=== PATIENT | female | born 1950 | race Caucasian/White ===

== ENCOUNTER → 2017-04-05 | Outpatient (CLI) | payer MEDICARE, BC | END | disposition home or self-care (01) | LOC: LABPAT 12:27 | PROVIDERS: ATTEND Orthopaedic Surgery | DX: Z01.812 Encounter for preprocedural laboratory examination (principal) | CPT/HCPCS: 87070 ==

== ENCOUNTER 2017-05-01 07:30 | Inpatient (IN) | payer MEDICARE, BC ==
[2017-06-07 11:45] VITALS: BMI 25.4
--- NOTE | 2017-06-11 10:02 | HP ---
HISTORY AND PHYSICAL REASON FOR ADMISSION: Surgery is 06/12/2017 HISTORY OF PRESENT ILLNESS: Elisabeth Colon is a 66-year-old patient seen symptomatic right knee osteoarthritis. After we discussed treatment options, she elected to proceed with right total knee arthroplasty. Consent was obtained. Medical clearance provided by Dr. Daniella Simmons. PAST MEDICAL HISTORY: Of hypertension, hyperlipidemia, hypothyroidism, rnf-tgvwvvy-hrcbromuc diabetes. PAST SURGICAL HISTORY: Thyroidectomy. DAILY MEDICATIONS: Atenolol, atorvastatin, levothyroxine, metformin. ALLERGIES: PENICILLIN. SOCIAL HISTORY: Patient denies tobacco use. PHYSICAL EXAMINATION: Evaluation of the right knee range of motion 0-120 degrees. Tenderness medial joint line. Positive medial Nitin's. Crepitus medial patellofemoral compartments with range of motion. Pain with patellofemoral compression. Ligaments stable. Hip rotation without pain. Distal neurovascular exam intact. RADIOGRAPHS: Right knee radiographs reveal severe medial and moderate patellofemoral compartment osteoarthritis. IMPRESSION: Right knee osteoarthritis. PLAN: Right total knee arthroplasty. Surgery is 06/12/2017. MMODL / IJN: [id number] /
[2017-06-12] MEDS ORDERED: ceFAZolin IN SWFI 2 GM/20 ML SYRINGE IVP ONE (05:00)
[2017-06-12] MEDS ORDERED: MELOXICAM 7.5 MG TAB PO ONE (05:00)
[2017-06-12] MEDS ORDERED: TRANEXAMIC ACID 1,000 MG in SODIUM CHLORIDE 0.9% 100 ML IVPB ONE ×4 (05:00)
[2017-06-12] MEDS ORDERED: ACETAMINOPHEN TAB 500 MG TAB PO ONE (05:00)
[2017-06-12] MEDS ORDERED: MIDAZOLAM 2 MG/2 ML VIAL IV PRN (05:36)
[2017-06-12] MEDS ORDERED: ONDANSETRON 4 MG/2 ML VIAL IVP ONE (05:36)
[2017-06-12] MEDS ORDERED: HYDROmorphone 1 MG/ML 1 ML SYRINGE IVP PRN ×4 (05:36→15:39)
[2017-06-12] MEDS ORDERED: DEXAMETHASONE SOD PHOSPHATE 10 MG/ML 1 ML VIAL IV ONE (05:36)
[2017-06-12 11:30] LABS: Glucose,Whole Blood 108 mg/dL (75-99)
[2017-06-12] MEDS: LACTATED RINGERS 1,000 ML IV SCH ×4 (11:30→23:20)
[2017-06-12] MEDS ORDERED: LIDOCAINE 1% 20 ML VIAL (10MG/ML) FOR IV START INTRADERMA ONE (11:31)
[2017-06-12] MEDS ORDERED: ROPIVACAINE 1,100 MG, SODIUM CHLORIDE 0.9% 330 ML MISCELLANE PRN ×2 (11:57)
--- NOTE | 2017-06-12 11:59 | P.ONQ ---
Anesthesiology Proc Note - PNB - Peripheral Nerve Block Performed Right Adductor Canal Infusion Time Out Performed: Yes (1142) Procedure Start Time: 11:43 Procedure Stop Time: 11:55 Indication: Acute Post-Operative Pain, Requested by physician Specifically requested for management of pain by DrRenetta: Gurmeet Lopez Sedation Type: Sedate with meaningful contact maintained Preparation: Sterile Prep Position: Supine Catheter: Indwelling Needle Types: doxIQ Needle Size: 80mm (3") Needle Gauge: 20 Technique: Ultrasound Injectate: 0.5% Ropivacaine (see comment for volume) (20cc) Blood Aspirated: No Pain Paresthesia on Injection Noted: No Resistance on Injection: Normal Events: Uneventful and Well Tolerated
[2017-06-12] MEDS ORDERED: ROPIVACAINE 246.25 MG, EPINEPHrine 0.5 MG, KETOROLAC 30 MG, cloNIDine HCL/PF 80 MCG, WA... MISCELLANE ONE ×5 (12:58)
[2017-06-12] MEDS ORDERED: SUCCINYLCHOLINE CHLORIDE 100 MG/5 ML SYR IV ONE (13:31)
[2017-06-12] MEDS ORDERED: fentaNYL (PF) 50 MCG/ML 2 ML AMP ONE (13:31)
[2017-06-12] MEDS ORDERED: ePHEDrine SULFATE/0.9% NACL/PF 50 MG/5 ML SYRINGE IV ONE (13:31)
[2017-06-12] MEDS ORDERED: SODIUM CHLORIDE 0.9% 20 ML with ceFAZolin 2 GM IV ONE ×2 (13:31)
[2017-06-12] MEDS ORDERED: ETOMIDATE 2 MG/ML 10 ML VIAL ONE (13:31)
[2017-06-12] MEDS ORDERED: TRANEXAMIC ACID 1,000 MG/10 ML VIAL ONE (13:31)
[2017-06-12] MEDS ORDERED: SODIUM CHLORIDE 0.9% 100 ML BAG ONE (13:31)
[2017-06-12] MEDS ORDERED: CLINDAMYCIN 1,800 MG in SODIUM CHLORIDE 0.9% IRRIGATIO 3,000 ML IRRIGATION ONE (14:10)
[2017-06-12] MEDS ORDERED: LACTATED RINGERS 1,000 ML IV ONE (14:51)
[2017-06-12] MEDS ORDERED: ONDANSETRON 4 MG/2 ML VIAL IVP PRN (15:39)
[2017-06-12] MEDS ORDERED: hydrOXYzine PAMOATE 25 MG CAP PO PRN (15:39)
[2017-06-12] MEDS ORDERED: HYDROcodone/APAP 7.5-325MG 1 EACH TAB PO PRN ×2 (15:39)
[2017-06-12] MEDS ORDERED: NALOXONE 0.4 MG/ML 1 ML VIAL IV PRN (15:39)
--- NOTE | 2017-06-12 15:39 | P.OP ---
Date of Procedure: 06/12/17 Preoperative Diagnosis: Right knee osteoarthritis Postoperative Diagnosis: Right knee osteoarthritis Procedure(s) Performed: Right total knee arthroplasty Implants: 1. Silver persona size 7 right narrow cruciate retaining cemented femur 2. Silver persona size D right cemented tibia 3. Silver persona 14 mm medial congruent polyethylene tibial insert 4. Silver persona 38 mm all polyethylene cemented patella Anesthesia: GETA, regional (Adductor canal catheter), local Surgeon: Gurmeet Lopez Mechanic Assistant #1: Ezra Quan Estimated Blood Loss (ml): 75 Pathology: other (Bone) Condition: stable Disposition: PACU Indications for Procedure: 66-year-old patient seen with symptomatic right knee osteoarthritis. After options regarding treatment were discussed, she elected to proceed with total knee arthroplasty. Operative Findings: see description of procedure Description of Procedure: Patient was taken to the operative suite after having an adductor canal catheter placed by the department of anesthesia. Patient underwent a general anesthetic by the department of anesthesia. Patient was given preoperative IV intake antibiotics and TXA. A well-padded tourniquet was placed about the [] lower extremity. The lower extremity was then prepped and draped in the normal sterile orthopedic fashion. The extremity was elevated, a tourniquet was insufflated to 350. A standard anterior incision was made sharply through skin. Dissection was taken down through the subcutaneous soft tissues down to the extensor mechanism. A medial arthrotomy was performed, patella was everted and knee was flexed. There was advanced osteoarthritis noted. A proximal tibial cutting guide was positioned. Proximal tibial cut was made. A distal intramedullary femoral cutting guide was positioned, distal femoral cut made. We placed the appropriate sizing guide and selected the appropriate size. A distal 4-in-1 femoral cutting block was positioned, distal femoral cuts were made. We now placed a trial femoral component into position, along with an appropriate size tibial tray and insert. We now took the knee through range of motion and had full extension good flexion and good overall soft tissue balance noted. The patella was everted and a flush cut made with patellar quad tendon. We templated the patella, appropriate drill holes were made. An appropriate trial patella was positioned, knee was taken through full range of motion with the patella tracking very nicely. The trial patella was removed. Drill holes were made through the femoral component. All trial components were removed after marking off the appropriate rotation of the tibia. Retractors were now positioned along the proximal tibia. An appropriate keel punch was made with the appropriate size tibial guide. At this point appropriate size implants were chosen and opened. The joint was irrigated copiously with pulse lavage mechanical irrigation. The deep soft tissues were infiltrated with local analgesic. We mixed antibiotic methylmethacrylate. Once the methyl methacrylate was ready, the tibial component was cemented into place removing any excess methylmethacrylate. The femoral component was cemented into place removing the removing any excess methylmethacrylate. We then inserted the appropriate size polyethylene tibial insert. We made sure that it was locked into position. We took the knee into full extension, and then back in a flexion making sure we had removed any excess methylmethacrylate. The patellar component was then cemented down and secured with clamp. Excess methylmethacrylate removed. We kept the knee in full extension, patellar clamp in position until methylmethacrylate had hardened. Once it had hardened the patellar clamp was removed. The knee was taken through full range of motion. The patella tracked nicely. There was good soft tissue balancing. The tourniquet was now released. Additional hemostasis was achieved via electrocautery. Second gram of TXA was given. The wound was irrigated with pulse lavage mechanical irrigation. The superficial soft tissues were infiltrated local analgesic. The extensor mechanism was repaired with Vicryl. We checked the repair with range of motion and it was stable. The subcutaneous soft tissues were repaired with Vicryl in layers. The skin was approximated with pernio/Dermabond. Sterile dressings were applied followed by loose web roll and Ethan bandage. The patient was transferred to a bed, and taken to recovery in stable and satisfactory condition. Jaya SANCHEZ assisted with the procedure.
--- NOTE | 2017-06-12 16:20 | XR ---
EXAMINATION TYPE: XR knee limited RT DATE OF EXAM: 06/12/2017 CLINICAL HISTORY: pain TECHNIQUE: Three views of the right knee are obtained. COMPARISON: None. FINDINGS: There is no acute fracture/dislocation. The tri-compartment joint spaces appear within no rmal limits. The overlying soft tissue appears unremarkable. IMPRESSION: There is no acute fracture or dislocation.ICD 10 NO FRACTURE, INITIAL EVALUATION
[2017-06-12] MEDS: traMADol 50 MG TAB PO SCH ×2 (18:20→23:19)
--- NOTE | 2017-06-12 18:27 | P.CONS ---
History of Present Illness - Reason for Consult Consult date: 06/12/17 medical management Requesting physician: Gurmeet Lopez - Chief Complaint knee replacement - History of Present Illness This is a 66-year-old female that was admitted post knee replacement. Patient says that today prior to surgery, she felt lightheaded and was told that her blood pressure was low. Denies any chest pain or palpitations shortness of breath no nausea no fever Review of Systems Constitutional: Denies chills, Denies fever Ears, nose, mouth and throat: Denies headache, Denies sore throat Cardiovascular: Reports lightheadedness, Denies chest pain, Denies shortness of breath Respiratory: Denies cough, Denies dyspnea Gastrointestinal: Denies abdominal pain, Denies diarrhea, Denies nausea, Denies vomiting Genitourinary: Denies dysuria, Denies hematuria Musculoskeletal: Denies myalgias Integumentary: Denies pruritus, Denies rash Neurological: Denies numbness, Denies weakness Psychiatric: Denies anxiety, Denies depression Endocrine: Denies fatigue, Denies weight change Hematologic/Lymphatic: Denies easy bleeding, Denies lymphadenopathy Past Medical History Past Medical History: Diabetes Mellitus, Hyperlipidemia, Hypertension, Osteoarthritis (OA), Thyroid Disorder Additional Past Medical History / Comment(s): HEART MURMUR, 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 History of Any Multi-Drug Resistant Organisms: None Reported Past Surgical History: Section, Orthopedic Surgery Additional Past Surgical History / Comment(s): Thyroidectomy 1996, STENT SMA Past Anesthesia/Blood Transfusion Reactions: No Reported Reaction, Motion Sickness Past Psychological History: No Psychological Hx Reported Additional Psychological History / Comment(s): STATES CURRENT ANXIETY Smoking Status: Former smoker Past Alcohol Use History: Daily Additional Past Alcohol Use History / Comment(s): 1 1/2 bottle of liquor daily OR a box of wine ., quit drinking APRIL 2017. QUIT SMOKING 7 YEARS AGO. SMOKED 2 PPD., SMOKED FOR 42 YEARS. Past Drug Use History: None Reported - Past Family History Father Family Medical History: Hypertension Mother Family Medical History: Diabetes Mellitus, Hypertension Sister(s) Family Medical History: Diabetes Mellitus, Hypertension Medications and Allergies Home Medications Medication Instructions Recorded Confirmed Type metFORMIN HCL ER [Glucophage Xr] 500 mg PO PC-SUPPER 05/24/17 11/08/17 History Aspirin 650 mg PO TID PRN 04/24/17 06/07/17 History Atenolol [Tenormin] 25 mg PO DAILY 04/24/17 06/07/17 History Levothyroxine Sodium [Levo-T] 112 mcg PO DAILY 04/24/17 06/07/17 History Valsartan/Hydrochlorothiazide 1 tab PO DAILY@1500 04/24/17 06/12/17 History [Valsartan-Hctz 320-25 mg Tab] amLODIPine [Norvasc] 5 mg PO DAILY@1500 04/24/17 06/07/17 History Acetaminophen Tab [Tylenol Tab] 1,000 mg PO TID PRN 06/07/17 06/12/17 History Allergies Allergy/AdvReac Type Severity Reaction Status Date / Time Penicillins Allergy Rash/Hives Verified 06/12/17 11:09 Physical Exam Vitals: Vital Signs Temp Pulse Pulse Resp BP BP Pulse Ox 06/12/17 16:30 94 18 90/58 93 L 06/12/17 16:15 93 18 101/54 100 06/12/17 16:01 96 18 106/57 96 06/12/17 15:51 98.5 F 93 16 108/55 98 06/12/17 13:00 72 16 84/56 06/12/17 12:00 60 16 76/51 06/12/17 11:40 90 16 99/60 06/12/17 11:38 97.3 F L 75 16 91/57 100 Intake and Output 06/12/17 06/12/17 06/12/17 06:59 14:59 22:59 Intake Total 2341 300 Output Total 475 Balance 2341 -175 Intake: IV 2341 300 Output: Urine 400 Estimated Blood Loss 75 - Constitutional General appearance: no acute distress - EENT Eyes: EOMI, PERRLA - Neck Neck: no lymphadenopathy - Respiratory Respiratory: bilateral: CTA, negative: rhonchi, wheezing - Cardiovascular Heart sounds: normal: S1, S2 - Gastrointestinal General gastrointestinal: no organomegaly, soft, no tenderness - Integumentary Integumentary: normal turgor, no rash - Neurologic Neurologic: CNII-XII intact - Psychiatric Psychiatric: A&O x's 3, appropriate affect Extremity: no edema Results Labs: Abnormal Lab Results - Last 24 Hours (Table) 06/12/17 Range/Units 11:22 POC Glucose (mg/dL) 108 H (75-99) mg/dL Assessment and Plan (1) Total knee replacement status Narrative/Plan: per orthopedic surgery Current Visit: Yes Status: Acute Code(s): Z96.659 - PRESENCE OF UNSPECIFIED ARTIFICIAL KNEE JOINT SNOMED Code(s): 6233158270233 (2) Hypertension Narrative/Plan: Patient currently hypotensive Will hold blood pressure medications at this time ussually takes valsartan/hctz, norvasc, atenolol as outpatient Current Visit: Yes Status: Acute Code(s): I10 - ESSENTIAL (PRIMARY) HYPERTENSION SNOMED Code(s): 29102882 (3) Hyperlipidemia Current Visit: Yes Status: Acute Code(s): E78.5 - HYPERLIPIDEMIA, UNSPECIFIED SNOMED Code(s): 01604341 (4) Hypothyroidism Narrative/Plan: on synthroid will continue Current Visit: Yes Status: Acute Code(s): E03.9 - HYPOTHYROIDISM, UNSPECIFIED SNOMED Code(s): 60732813 (5) Pre-diabetes Narrative/Plan: On metformin Current Visit: Yes Status: Acute Code(s): R73.03 - PREDIABETES SNOMED Code (s): 279957863
[2017-06-12] MEDS: ceFAZolin IN SWFI 2 GM/20 ML SYRINGE IVP SCH ×2 (18:28→23:19)
[2017-06-12 20:13] LABS: Glucose,Whole Blood 219 mg/dL (75-99)
[2017-06-12] MEDS: INSULIN ASPART 100 UNIT/ML 1 ML 10 ML VIAL SQ SCH (20:21)
[2017-06-12] MEDS ORDERED: SENNOSIDES-DOCUSATE SODIUM 1 EACH TAB PO SCH (21:00)
[2017-06-13 07:23] LABS: Basophils % (A) 0 %; CH 33.9; CHCM 33.9; Eosinophils # (A) 0.1 k/uL (0-0.7); Eosinophils % (A) 0 %; HCT 31.7 % (34.0-46.0); HGB 10.4 gm/dL (11.4-16.0); Luc # (Auto) 0.06; Luc % (Auto) 1; Lymphocytes # (A) 0.7 k/uL (1.0-4.8); Lymphocytes % (A) 6 %; MCH 32.9 pg (25.0-35.0); MCHC 32.8 g/dL (31.0-37.0); MCV 100.4 fL (80.0-100.0); Mean Platelet Volume 6.9; Monocytes # (A) 0.6 k/uL (0-1.0); Monocytes % (A) 5 %; Neutrophils # (A) 10.2 k/uL (1.3-7.7); Neutrophils % (A) 88 %; RBC 3.16 m/uL (3.80-5.40); RDW 13.1 % (11.5-15.5); WBC 11.6 k/uL (3.8-10.6)
[2017-06-13 07:50] LABS: Glucose,Whole Blood 106 mg/dL (75-99)
[2017-06-13] MEDS: traMADol 50 MG TAB PO SCH ×2 (07:53→12:34)
--- NOTE | 2017-06-13 08:54 | P.PN ---
Progress Note - Text Progress Note Date: 06/13/17 66-year-old female status post right total knee arthroplasty and patient received right adductor canal at catheter and she is sitting up in her chair feeling comfortable VAS score of 0/10 days of nausea vomiting or itching patient is doing good and no complaints overnight
[2017-06-13] MEDS ORDERED: MELOXICAM 7.5 MG TAB PO SCH (09:00)
[2017-06-13] MEDS ORDERED: FAMOTIDINE 20 MG TAB PO SCH (09:00)
[2017-06-13] MEDS ORDERED: LEVOTHYROXINE 112 MCG TAB PO SCH (09:00)
[2017-06-13] MEDS ORDERED: ENOXAPARIN 30 MG/0.3 ML SYRINGE SQ SCH (09:00)
[2017-06-13] MEDS: INSULIN ASPART 100 UNIT/ML 1 ML 10 ML VIAL SQ SCH (09:07)
[2017-06-13 10:12] VITALS: RESP 16
--- NOTE | 2017-06-13 11:17 | P.PN ---
Subjective Progress Note Date: 06/13/17 Principal diagnosis: arthritis Patient is a 66-year-old female with a past medical history of diabetes mellitus type 2, dyslipidemia, hypertension, thyroiditis and osteoarthritis who presented for an elective total knee arthroplasty on the right. She tolerated procedure well. She did have low blood pressure preop and postoperative requiring IV fluid resuscitation. Her blood pressure medications were held. Patient seen and examined at bedside. She states that she has had high blood pressure in the past. She states her blood pressure recently have been running in the 130s when she checked it. She states she has not checked in quite some time at home. She has also lost approximately 60 pounds in the last several months after having been cutting down her carbs with history of diabetes. She complains of some nausea this morning she states is not unusual for her. She denies any chest pain, shortness of breath, diarrhea, or constipation. She states she follows with Dr. Slater. Discussed that she may need modification of her blood pressure regimen , and will need follow-up with Dr. Slater approximately one week to determine long-term blood pressure medication needs. Objective - Vital Signs Vital signs: Vital Signs Temp 97.3 F L 06/13/17 07:00 Pulse 72 06/13/17 09:52 Resp 16 06/13/17 09:52 BP 104/61 06/13/17 07:00 Pulse Ox 99 06/13/17 07:00 Intake & Output 06/12/17 06/13/17 06/13/17 18:59 06:59 18:59 Intake Total 2641 1620 Output Total 475 1800 100 Balance 2166 -180 -100 Weight 63.049 kg Intake: IV 2641 Intake, IV Titration 1620 Amount Lactated Ringers 1,000 ml 1600 @ 100 mls/hr IV .Q10H [facility] Rx#:[id number] Sodium Chloride 0.9% 20 20 ml As IV .STK-MED ONE with ceFAZolin 2 gm Rx#: [id number] Output: Urine 400 1800 100 Uretheral (Kline) 100 Estimated Blood Loss 75 Other: Voiding Method Indwelling Catheter - Exam General: non toxic, no distress, appears at stated age Derm: warm, dry Head: atraumatic, normocephalic, symmetric Eyes: EOMI, no lid lag, anicteric sclera Mouth: no lip lesion, mucus membranes moist Cardiovascular: S1S2 reg, no murmur, positive posterior tibial pulse bilateral, Lungs: CTA bilateral, no rhonchi, no rales , no accessory muscle use Abdominal: soft, nontender to palpation, no guarding, no appreciable organomegaly Ext: no gross muscle atrophy, no edema, no contractures, right knee with dressing in place and in CPM machine Neuro: CN II-XI grossly intact, no focal neuro deficits Psych: Alert, oriented, appropriate affect, pressured speech - Labs CBC & Chem 7: 06/13/17 06:35 Labs: Abnormal Lab Results - Last 24 Hours (Table) 06/12/17 06/12/17 06/13/17 Range/Units 11:22 20:10 06:35 WBC 11.6 H (3.8-10.6) k/uL RBC 3.16 L (3.80-5.40) m/uL Hgb 10.4 L (11.4-16.0) gm/dL Hct 31.7 L (34.0-46.0) % MCV 100.4 H (80.0-100.0) fL Neutrophils # 10.2 H (1.3-7.7) k/uL Lymphocytes # 0.7 L (1.0-4.8) k/uL POC Glucose (mg/dL) 108 H 219 H (75-99) mg/dL 06/13/17 Range/Units 07:46 WBC (3.8-10.6) k/uL RBC (3.80-5.40) m/uL Hgb (11.4-16.0) gm/dL Hct (34.0-46.0) % MCV (80.0-100.0) fL Neutrophils # (1.3-7.7) k/uL Lymphocytes # (1.0-4.8) k/uL POC Glucose (mg/dL) 106 H (75-99) mg/dL Assessment and Plan Assessment: History of hypertension, now with hypotension -Continue to hold home blood pressure medicines -Recheck blood pressure at noon -Continue to follow BP and hope to resume some medications -She'll need to follow-up with Dr. Slater in approximately 1 week regarding her blood pressure Osteoarthritis status post right total knee arthroplasty -Pain control -Management per primary team Diabetes mellitus type 2 -Continue to hold metformin -Follow blood sugars -Check hemoglobin A1c Hypothyroidism -Resume Synthroid dose Anticipated acute blood loss anemia - Follow CBC -If still hospitalized in a.m. Will check iron studies Thank you for allowing us to proceed the care of this pleasant patient. We discussed with the nurse to call us at time of discharge so that we may adjust her outpatient blood pressure medications. Please do not hesitate to contact somebody from the red team at [facility] [phone] with questions
[2017-06-13 11:47] LABS: Glucose,Whole Blood 84 mg/dL (75-99)
[2017-06-13 12:23] VITALS: BP 101/52; PULSE 76; TEMP 96.9
--- NOTE | 2017-06-13 12:56 | P.PN ---
Subjective Progress Note Date: 06/13/17 Principal diagnosis: Status post right total knee arthroplasty Patient seen today resting in her hospital bed, she appears comfortable. She's ambulated well with therapy. Her pain is well-controlled. She denies any headaches, lightheadedness, chest pain, shortness of breath. Objective - Vital Signs Vital signs: Vital Signs Temp 96.9 F L 06/13/17 12:22 Pulse 76 06/13/17 12:22 Resp 16 06/13/17 12:22 BP 101/52 06/13/17 12:22 Pulse Ox 98 06/13/17 12:22 Intake & Output 06/12/17 06/13/17 06/13/17 18:59 06:59 18:59 Intake Total 2641 1620 Output Total 475 1800 100 Balance 2166 -180 -100 Weight 63.049 kg Intake: IV 2641 Intake, IV Titration 1620 Amount Lactated Ringers 1,000 ml 1600 @ 100 mls/hr IV .Q10H [facility] Rx#:[id number] Sodium Chloride 0.9% 20 20 ml As IV .STK-MED ONE with ceFAZolin 2 gm Rx#: [id number] Output: Urine 400 1800 100 Uretheral (Kline) 100 Estimated Blood Loss 75 Other: Voiding Method Indwelling Catheter - Exam Right lower extremity: Incision is clean, dry, and intact. The prineo tape is in good condition. There is minimal soft tissue swelling and ecchymosis surrounding the medial and lateral aspects of the incision. Calf is soft, no tenderness with palpation. Plantar flexion, dorsiflexion, EHL, FHL are intact. Sensory exam to light touch throughout the extremity is intact, dorsal pedis pulses 2+. - Labs CBC & Chem 7: 06/13/17 06:35 Labs: Abnormal Lab Results - Last 24 Hours (Table) 06/12/17 06/13/17 06/13/17 Range/Units 20:10 06:35 07:46 WBC 11.6 H (3.8-10.6) k/uL RBC 3.16 L (3.80-5.40) m/uL Hgb 10.4 L (11.4-16.0) gm/dL Hct 31.7 L (34.0-46.0) % MCV 100.4 H (80.0-100.0) fL Neutrophils # 10.2 H (1.3-7.7) k/uL Lymphocytes # 0.7 L (1.0-4.8) k/uL POC Glucose (mg/dL) 219 H 106 H (75-99) mg/dL Assessment and Plan Plan: Assessment: 1. Postop day #1 status post right total knee arthroplasty Plan: 1. Pain control, continue use of oral medication 2. Continue work with physical therapy and use of CPM 3. Daily dressing changes/ice and elevate 4. GI and DVT prophylaxis, continue Pepcid and Lovenox 5 Medical recommendations 6. Discharge planning: Patient likely be discharged home tomorrow Time with Patient: Less than 30
[2017-06-14] MEDS ORDERED: ATENOLOL 25 MG TAB PO SCH (09:00)
== END 2017-06-13 16:47 | disposition home health service (06) | DRG 470 ==
LOC: 2ORMAIN 06-12 10:53 → 3SUR 06-12 16:11
PROVIDERS: ADMIT Orthopaedic Surgery; ATTEND Orthopaedic Surgery
PROC: 0SRC0J9 Replacement of Right Knee Joint with Synthetic Substitute, Cemented, Open Approach (ICD-10-PCS; principal; 2017-06-12 13:10)
DX: M17.11 Unilateral primary osteoarthritis, right knee (principal); D62 Acute posthemorrhagic anemia; I10 Essential (primary) hypertension; E03.9 Hypothyroidism, unspecified; E11.9 Type 2 diabetes mellitus without complications; E78.5 Hyperlipidemia, unspecified; Z79.899 Other long term (current) drug therapy; Z82.49 Family history of ischemic heart disease and other diseases of the circulatory system; Z83.3 Family history of diabetes mellitus; Z87.891 Personal history of nicotine dependence; Z88.0 Allergy status to penicillin; Z79.82 Long term (current) use of aspirin
CPT/HCPCS: 83036; 85025; 88300

== ENCOUNTER → 2017-06-08 | Outpatient (CLI) | payer MEDICARE, BC ==
[2017-06-08 19:47] LABS: Basophils # (A) 0.1 k/uL (0-0.2); Basophils % (A) 1 %; CH 32.5; Eosinophils # (A) 0.2 k/uL (0-0.7); Eosinophils % (A) 4 %; HCT 36.5 % (34.0-46.0); HDW 2.64; HGB 12.1 gm/dL (11.4-16.0); Luc # (Auto) 0.07; Luc % (Auto) 1; Lymphocytes # (A) 1.2 k/uL (1.0-4.8); Lymphocytes % (A) 19 %; MCH 32.9 pg (25.0-35.0); MCHC 33.1 g/dL (31.0-37.0); MCV 99.3 fL (80.0-100.0); Mean Platelet Volume 8.3; Monocytes # (A) 0.4 k/uL (0-1.0); Monocytes % (A) 6 %; Neutrophils # (A) 4.3 k/uL (1.3-7.7); Neutrophils % (A) 70 %; RBC 3.68 m/uL (3.80-5.40); WBC 6.2 k/uL (3.8-10.6); WBC (Perox) 6.69
[2017-06-08 20:02] LABS: INR 0.9 (<1.2); Prothrombin Time 9.4 sec (9.0-12.0)
[2017-06-08 20:48] LABS: Partial Thromboplastin Time 19.1 sec (22.0-30.0)
[2017-06-08 20:58] LABS: Potassium 4.2 mmol/L (3.5-5.1)
== END ==
LOC: MMGSC 10:56
PROVIDERS: ATTEND Orthopaedic Surgery
DX: Z01.812 Encounter for preprocedural laboratory examination (principal)
CPT/HCPCS: 36415; 80051; 85025; 85610; 85730

== ENCOUNTER → 2017-08-29 | Outpatient (CLI) | payer MEDICARE, BC ==
[2017-08-29 11:53] LABS: Cholesterol 240 mg/dL (<200); HDL Cholesterol 71 mg/dL (40-60); LDL Cholesterol,Calculated 140 mg/dL (0-99); Triglycerides 147 mg/dL (<150)
== END | disposition home or self-care (01) ==
LOC: LABWHC1 10:56
PROVIDERS: ATTEND Internal Medicine Cardiovascular Disease
DX: E78.00 Pure hypercholesterolemia, unspecified (principal); I10 Essential (primary) hypertension; I73.9 Peripheral vascular disease, unspecified; E11.9 Type 2 diabetes mellitus without complications; Q21.0 Ventricular septal defect
CPT/HCPCS: 36415; 73560; 80061

== ENCOUNTER → 2017-10-24 | Outpatient (CLI) | payer MEDICARE, BC ==
[2017-10-24 11:48] LABS: Cholesterol 185 mg/dL (<200); HDL Cholesterol 82 mg/dL (40-60); LDL Cholesterol,Calculated 84 mg/dL (0-99); Triglycerides 95 mg/dL (<150)
[2017-10-24 21:03] LABS: Hemoglobin A1C 5.6 % (4.0-6.0)
== END | disposition home or self-care (01) ==
LOC: LABWHC1 11:12
PROVIDERS: ATTEND Internal Medicine Endocrinology, Diabetes & Metabolism
DX: E11.65 Type 2 diabetes mellitus with hyperglycemia (principal); E03.8 Other specified hypothyroidism
CPT/HCPCS: 36415; 80061; 83036; 84443

== ENCOUNTER → 2018-03-07 | Outpatient (CLI) | payer MEDICARE, BC ==
[2018-03-07 10:07] LABS: Albumin 4.7 g/dL (3.5-5.0); Potassium 4.4 mmol/L (3.5-5.1); Total Bilirubin 0.8 mg/dL (0.2-1.3)
[2018-03-07 18:05] LABS: Hemoglobin A1C 5.6 % (4.0-6.0)
== END | disposition home or self-care (01) ==
LOC: LABWHC1 08:36
PROVIDERS: ATTEND Internal Medicine Endocrinology, Diabetes & Metabolism
DX: E11.65 Type 2 diabetes mellitus with hyperglycemia (principal); E03.8 Other specified hypothyroidism
CPT/HCPCS: 36415; 80053; 80061; 82043; 82570; 83036; 84443

== ENCOUNTER → 2018-09-10 | Outpatient (CLI) | payer MEDICARE | END | disposition home or self-care (01) | LOC: LABWHC1 12:41 | PROVIDERS: ATTEND Psychiatry & Neurology Neurology | DX: R41.3 Other amnesia (principal) | CPT/HCPCS: 36415; 82607 ==

== ENCOUNTER → 2018-09-26 | Outpatient (CLI) | payer MEDICARE ==
--- NOTE | 2018-09-26 13:11 | MR ---
MR brain without contrast HISTORY: Memory loss Multiplanar multisequence imaging through the brain No comparisons There is no restricted diffusion. No hemorrhage or hydrocephalus. Periventricular and subcortical hyp erintensities are present on inversion recovery and T2-weighted sequences, approximately 15-20 lesion s are present. Largest lesion in the subcortical region of the insula on the left measures 5 mm in gr eatest dimension on axial image 14. 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 Corpus callosum, pituitary, cervical medullary junction, cerebellopontine angles are normal. There are normal vascular flow voids. Mucosal disease is present in the left maxillary sinus. Orbits show symmetric appearance . Brain volume is age appropriate. IMPRESSION: Nonspecific white matter demyelination likely due to chronic small vessel ischemia. There is age-related atrophy. Sinus disease.
== END ==
LOC: RADMRIMAIN 11:53
PROVIDERS: ATTEND Psychiatry & Neurology Neurology
DX: G31.1 Senile degeneration of brain, not elsewhere classified (principal); R90.89 Other abnormal findings on diagnostic imaging of central nervous system
CPT/HCPCS: 70551

== ENCOUNTER → 2019-02-21 | Outpatient (CLI) | payer MEDICARE ==
--- NOTE | 2019-02-21 16:06 | US ---
EXAMINATION TYPE: US carotid duplex BILAT DATE OF EXAM: 02/21/2019 COMPARISON: NONE CLINICAL HISTORY: I10 Hypertension, R41.3 amnesia, F01.50 Major. no h/o stroke EXAM MEASUREMENTS: RIGHT: Peak Systolic Velocity (PSV) cm/sec ----- Right CCA: 77.8 ----- Right ICA: 105.7 ----- Right ECA: 64.9 ICA/CCA ratio: 1.4 RIGHT: End Diastole cm/sec ----- Right CCA: 18.3 ----- Right ICA: 30.6 ----- Right ECA: 8.7 LEFT: Peak Systolic Velocity (PSV) cm/sec ----- Left CCA: 88.8 ----- Left ICA: 128.7 ----- Left ECA: 74.1 ICA/CCA ratio: 1.4 LEFT: End Diastole cm/sec ----- Left CCA: 17.2 ----- Left ICA: 20.4 ----- Left ECA: 9.1 VERTEBRALS (direction of flow): Right Vertebral: Antegrade Left Vertebral: Antegrade Rhythm: Arrhythmia Heterogeneous plaque seen bilaterally with no significant stenosis, arrythmia seen within left verteb ral IMPRESSION: 1. Mild degree of grayscale atheromatous plaquing with no sonographically evident hemodynamically sig nificant stenosis within either visualized carotid arterial system. 2. Incidental arrhythmia noted only while imaging the left vertebral artery. Correlate with EKG. Criteria for Assigning % of Stenosis / Diameter reduction (Estimation based on the indirect measurements of the internal carotid artery velocities (ICA PSV). 1. Normal (no stenosis)=ICA PSV < 125 cm/s: ratio < 2.0: ICA EDV<40 cm/s. 2. Less than 50% stenosis=ICA PSV < 125 cm/s: ratio < 2.0: ICA EDV<40 cm/s. 3. 50 to 69% stenosis=ICA PSV of 125 to 230 cm/s: ration 2.0 ? 4.0: ICA EDV 40-100 cm/s. 4. Greater than 70% stenosis to near occlusion= ICA PSV > 230 cm/s: ratio > 4.0: ICA EDV > 100 cm/s. 5. Near occlusion= ICA PSV velocities may be low or undetectable: variable ratio and ICA EDV. 6. Total occlusion=unable to detect flow.
== END | disposition home or self-care (01) ==
LOC: RADUSWWP 15:29
PROVIDERS: ATTEND Psychiatry & Neurology Neurology
DX: I65.23 Occlusion and stenosis of bilateral carotid arteries (principal); I10 Essential (primary) hypertension
CPT/HCPCS: 93880

== ENCOUNTER → 2019-04-17 | Outpatient (CLI) | payer MEDICARE ==
[2019-04-17 18:41] LABS: African American GFR (CKD) 44.3 (60.0-200.0); Albumin 4.4 g/dL (3.80-4.90); Albumin/Globulin Ratio 2.59 (1.60-3.17); Anion Gap 13.7 mmol/L (4.00-12.00); BUN/Creat Ratio 19.29 Ratio (12.00-20.00); Carbon Dioxide 22.3 mmol/L (21.6-31.8); Chol/HDL Ratio 2.48; Globulin 1.7 g/dL (1.6-3.3); Potassium 4.5 mmol/L (3.5-5.5); Total Bilirubin 0.5 mg/dL (0.2-1.2); Total Protein 6.1 g/dL (6.2-8.2)
[2019-04-17 19:20] LABS: Hemoglobin A1C 5.7 % (4.0-6.0)
== END | disposition home or self-care (01) ==
LOC: LABWHC1 09:45
PROVIDERS: ATTEND Internal Medicine Endocrinology, Diabetes & Metabolism
DX: E11.9 Type 2 diabetes mellitus without complications (principal)
CPT/HCPCS: 36415; 80053; 80061; 82043; 82570; 83036; 84443

== ENCOUNTER → 2019-08-20 | Outpatient (CLI) | payer MEDICARE ==
[2019-08-20 11:38] LABS: HCT 38.4 % (34.0-46.0); HGB 12.5 gm/dL (11.4-16.0); MCH 31.2 pg (25.0-35.0); MCHC 32.4 g/dL (31.0-37.0); MCV 96.4 fL (80.0-100.0); Mean Platelet Volume 7.2; Platelet Count 203 k/uL (150-450); RBC 3.99 m/uL (3.80-5.40); RDW 12.3 % (11.5-15.5); WBC 6.3 k/uL (3.8-10.6)
[2019-08-20 12:25] LABS: Appearance,Urine Clear (Clear); Bacteria,Urine Many /hpf; Bilirubin,Urine Negative (Negative); Blood,Urine Negative (Negative); Color,Urine Light Yellow; Glucose,Urine (UA) Negative (Negative); Ketones,Urine Negative (Negative); Leukocyte Esterase,Urine Moderate (Negative); Mucus,Urine Rare /hpf; Nitrite,Urine Negative (Negative); PH, Urine 5.5 (5.0-8.0); Protein,Urine Negative (Negative); Specific Gravity,Urine 1.008 (1.001-1.035); Squamous Epithelial Cell,Urine 4 /hpf (0-4); Urobilinogen,Urine <2.0 mg/dL (<2.0); WBC,Urine 22 /hpf (0-5)
[2019-08-20 17:32] LABS: African American GFR (CKD) 44.3 (60.0-200.0); Albumin 4.5 g/dL (3.80-4.90); Albumin/Globulin Ratio 2.37 (1.60-3.17); Anion Gap 10.6 mmol/L (4.00-12.00); BUN/Creat Ratio 16.43 Ratio (12.00-20.00); Calcium 9.4 mg/dL (8.7-10.3); Carbon Dioxide 24.4 mmol/L (21.6-31.8); Chol/HDL Ratio 2.56; Globulin 1.9 g/dL (1.6-3.3); LDL Cholesterol,Calculated 74.8 mg/dL (0.0-131.0); Magnesium 1.7 mg/dL (1.5-2.4); Non-African American GFR(CKD) 38.2 (60.0-200.0); Total Bilirubin 0.3 mg/dL (0.3-1.2); Total Protein 6.4 g/dL (6.2-8.2); VLDL Calculation 23.2 mg/dL (5.00-40.00)
[2019-08-20 19:07] LABS: Hemoglobin A1C 5.5 % (4.0-6.0)
[2019-08-20 22:17] LABS: Urine Creatinine 37.6 mg/dL
== END | disposition home or self-care (01) ==
LOC: LABWHC1 11:02
PROVIDERS: ATTEND Internal Medicine Endocrinology, Diabetes & Metabolism
DX: E11.9 Type 2 diabetes mellitus without complications (principal); I10 Essential (primary) hypertension; Z79.899 Other long term (current) drug therapy
CPT/HCPCS: 36415; 80053; 80061; 81001; 82043; 82550; 82570; 83036; 83735; 84443; 85027

== ENCOUNTER → 2020-05-07 | Outpatient (CLI) | payer MEDICARE ==
--- NOTE | 2020-05-07 12:13 | MM ---
Reason for exam: screening (asymptomatic). Last mammogram was performed 9 years and 6 months ago. History: Patient is postmenopausal. Physical Findings: A clinical breast exam by your physician is recommended on an annual basis and results should be correlated with mammographic findings. MG Screening Mammo w CAD Bilateral CC and MLO view(s) were taken. Prior study comparison: November 01, 2010, bilateral digital screening mammo w/CAD. The breast tissue is heterogeneously dense. This may lower the sensitivity of mammography. Finding: There are typically benign vascular, round calcifications in both breasts. There is no discrete abnormality. New finding and increase in number of calcifications since November 01, 2010. ASSESSMENT: Benign, BI-RAD 2 RECOMMENDATION: Routine screening mammogram of both breasts in 1 year.
== END | disposition home or self-care (01) ==
LOC: RADMAMWWP 10:40
PROVIDERS: ATTEND Family Medicine
DX: Z12.31 Encounter for screening mammogram for malignant neoplasm of breast (principal)
CPT/HCPCS: 77067

== ENCOUNTER → 2025-02-10 | Outpatient (CLI) | payer MEDICARE ==
--- NOTE | 2025-02-10 16:50 | CT ---
EXAMINATION TYPE: CT abdomen wo con DATE OF EXAM: 02/10/2025 3:58 PM COMPARISON: None. CLINICAL INDICATION: Female, 74 years old with history of N28.1 CYST OF KIDNEY, ACQUIRED; possible cy st or possible kidney stones TECHNIQUE: Axial CT abdomen wo con;Sagittal and coronal reformats were created on a separate worksta tion. Contrast used: mL of , (none if empty) Oral contrast used: without Oral Contrast (none if empty) CT DLP: 228.3 mGycm, Automated exposure control for dose reduction was used. FINDINGS: LOWER CHEST: Unremarkable ABDOMEN LIVER: Unremarkable GALLBLADDER AND BILE DUCTS: Layering increased densities within the lumen consistent with gallstones are present. PANCREAS: Unremarkable. SPLEEN: Unremarkable. ADRENAL GLANDS: Unremarkable. KIDNEYS AND URETERS: Limited evaluation for cysts without IV contrast. Atrophic left kidney with monster ical calcification measuring 3 mm. No right renal calculi. No evidence of hydronephrosis. Bilateral e xtrarenal pelves. PELVIS BLADDER: No evidence for wall thickening or mass given limitations of exam. REPRODUCTIVE: Unremarkable. ABDOMEN & PELVIS STOMACH AND BOWEL: No evidence of bowel obstruction. Scattered colonic diverticula. PERITONEUM/RETROPERITONEUM: No evidence of pneumoperitoneum or free fluid. VASCULATURE: No evidence of aortic aneurysm. Celiac axis stent graft present. MUSCULOSKELETAL: No acute osseous abnormalities. Moderate disc degeneration changes are present throu ghout the thoracolumbar spine. Grade 2 anterolisthesis of L4 and L5. LYMPH NODES: No gross evidence for lymphadenopathy. SOFT TISSUE/ABDOMINAL WALL: Unremarkable IMPRESSION: 1. Limited noncontrast exam. No renal cortical cysts on noncontrast CT. Consider multiphasic CT imag ing. Atrophic left kidney with cortical calcification. No obstructive uropathy. 2. Cholelithiasis. 3. Colonic diverticulosis. 4. Grade 2 anterolisthesis of L4 and L5. [facility], , 02/10/2025 4:47 PM
== END | disposition home or self-care (01) ==
LOC: RADCTMAIN 15:34
PROVIDERS: ATTEND Urology
DX: N28.1 Cyst of kidney, acquired (principal); K80.20 Calculus of gallbladder without cholecystitis without obstruction; K57.30 Diverticulosis of large intestine without perforation or abscess without bleeding; M43.16 Spondylolisthesis, lumbar region; N26.1 Atrophy of kidney (terminal)
CPT/HCPCS: 74150